=== PATIENT | female | born 1955 | race Caucasian/White ===

== ENCOUNTER 2018-06-02 08:16 | Emergency (ER) | payer OTHER ==
[~2018-06-02] VITALS: Ht 152.4 cm; Wt 69.0 kg
[2018-06-02 08:20] VITALS: BP 121/76; PULSE 99; RESP 18; Ht 152.4 cm; Wt 69.0 kg
[2018-06-02] MEDS ORDERED: AZIT250T PO (08:45)
[2018-06-02] MEDS ORDERED: CARB-155 RIGHT EAR (08:45)
[2018-06-02] MEDS ORDERED: IBUP-1542 PO (08:45)
--- NOTE | 2018-06-02 08:48 | ERD ---
ER Documentation Chief Complaint Chief Complaint COUGH X 4 DAYS HPI 62-year-old female presents with cough and right ear pain for last 4 days. She denies any discharge or bleeding. She denies any measured fevers, vomiting, abdominal pain, chest pain. ROS All systems reviewed and are negative except as per history of present illness. Medications Home Meds Active Scripts Carbamide Peroxide* (Debrox*) 6.5% -15 Ml Drops, 10 DROP RIGHT EAR BID for 7 Days, EA Prov:TEX CHAVEZ MD 06/02/18 Ibuprofen* (Motrin*) 600 Mg Tab, 600 MG PO Q6H PRN for PAIN, #15 TAB Prov:TEX CHAVEZ MD 06/02/18 Azithromycin* (Zithromax*) 250 Mg Tablet, 250 MG PO .ZPACK DIRECTED, #6 TAB TAKE 500 MG (2 TABS) THE FIRST DAY THEN 250 MG (1 TAB) DAYS 2-5 Prov:TEX CHAVEZ MD 06/02/18 FmHx Family History: No diabetes, No coronary disease, No other Physical Exam Vitals Vital Signs Date Temp Pulse Resp B/P (MAP) Pulse Ox O2 O2 Flow FiO2 Time Delivery Rate 06/02/18 98.9 99 18 121/76 99 08:20 (91) Physical Exam Const: No acute distress Head: Atraumatic Eyes: Normal Conjunctiva ENT: Normal External Ears, Nose and Mouth. Right TM occluded by some foreign material, likely cerumen. TM red behind the wax although difficult to visualize. Neck: Full range of motion. No meningismus. Resp: Clear to auscultation bilaterally .dry cough without rales, wheezing or retractions. Cardio: Regular rate and rhythm, no murmurs Abd: Soft, non tender, non distended. Normal bowel sounds Skin: No petechiae or rashes Back: No midline or flank tenderness Ext: No cyanosis, or edema Neur: Awake and alert Psych: Normal Mood and Affect Procedures/MDM Patient presents with cough, right ear pain and signs of cerumen impaction. Will treat with Zithromax empirically, Debrox, ibuprofen, recommendations for ear lavage when pain resolves. Attempted earwax removal today was difficult due to pain and was aborted. She has no signs of mastoiditis, perforation, additional complications. The patient was stable with no new complaints during the ER course. Clinically, there is no current evidence to suggest meningitis, sepsis, acute abdomen, pneumonia, stroke, acute coronary syndrome, pulmonary embolism, aortic dissection or any other emergent condition appearing to require further evaluation or hospitalization. Patient counseled regarding my diagnostic impression and care plan. Prior to discharge all questions answered. Pt agrees with treatment plan and understands strict return precautions. Pt is instructed to follow up with primary care provider within 24-48 hours. Precautionary instructions provided including instructions to return to the ER if not improving or for any worsening or changing symptoms or concerns. Departure Diagnosis: Primary Impression: Cerumen impaction Laterality: right Qualified Codes: H61.21 - Impacted cerumen, right ear Additional Impression: Cough Condition: Stable Patient Instructions: Otitis Media, Abx Tx (Adult) Additional Instructions: . Cheque otro vez con murphy doctor primario en el proximo ribeiro or regresa para mas o nueva simptomas. cheque para limpiar oido otor vez cuando cale menos dolor. TEX CHAVEZ MD Jun 02, 2018 08:48
== END 2018-06-02 09:15 | disposition home or self-care (01) ==
LOC: FTE 08:16
DX: H61.21 Impacted cerumen, right ear (principal)
CPT/HCPCS: 99283